=== PATIENT | female | born 1970 | race Hispanic/Latino ===

== ENCOUNTER 2017-06-10 21:06 | Inpatient (IN) | payer SELFPAY, OTHER ==
[2017-06-10] MEDS ORDERED: Pantoprazole 40 MG VIAL ONE (21:39)
[2017-06-10 22:20] LABS: #Basophils 0.1 thou/uL (0.0-0.2); #Eosinphils 0.1 thou/uL (0.0-0.7); #Lymphocytes 3.7 thou/uL (1.20-3.40); #Monocytes 0.7 thou/uL (0.11-0.59); #Neutrophils 7.3 thou/uL (1.40-6.50); %Basophils 0.8 % (0.0-1.0); %Eosinophils 0.9 % (0.0-10.0); %Monocytes 5.8 % (0.0-10.0); %Neutrophils 61.5 % (42.0-75.0); Anisocytosis MODERATE=16-30 cells (100X) (0-5/hpf); Bite Cells SLIGHT = 2-5 cells (100X) (0-1/hpf); Elliptocytes SLIGHT = 2-5 cells (100X) (0-1/hpf); Hemoglobin 7.8 g/dL (12.0-16.0); Hypochromia SLIGHT = 6-15 cells (100X) (0-5/hpf); MDiff Complete? YES; Mean Corpuscular HGB CONC 29.8 g/dL (32.0-36.0); Mean Corpuscular Hemoglobin 19.2 pg (27.0-31.0); Mean Corpuscular Volume 64.4 fl (81.0-99.0); Mean Platelet Volume 8.7 fL (7.4-10.4); Microcytosis MODERATE=15-30 cells (100X) (0-5/hpf); Ovalocytes SLIGHT = 2-5 cells (100X) (0-1/hpf); PLT Morphology Comment Appears Increased; Platelet Count 497 thou/uL (130-400); RBC Distribution Width 16.7 % (11.5-14.5); Red Blood Cell (RBC) Count 4.07 mill/uL (4.20-5.40); Reflex for Review?? YES; Tear Drops SLIGHT = 2-5 cells (100X) (0-1/hpf); White Blood Cell (WBC) Count 11.9 thou/uL (4.8-10.8)
[2017-06-10] MEDS ORDERED: Fentanyl 100 MCG/2 ML VIAL ONE (23:40)
[2017-06-11] MEDS ORDERED: Morphine 5 MG/ML SYRINGE SLOW IVP PRN (00:12)
[2017-06-11] MEDS ORDERED: HYDROcodone/Acetaminophen 5/325 mg Tablet PO PRN (00:13)
[2017-06-11] MEDS ORDERED: Bisacodyl 5 MG TAB PO PRN (00:13)
[2017-06-11] MEDS ORDERED: Milk Of Magnesia 30 ML UDCUP PO PRN (00:13)
[2017-06-11] MEDS ORDERED: Calcium Carbonate 500 MG ChewTAB PO PRN (00:13)
[2017-06-11] MEDS ORDERED: Senokot 8.6 MG TAB PO PRN (00:13)
[2017-06-11 00:23] VITALS: BMI 31.8
[2017-06-11] MEDS: Sodium Chloride 0.9% 1,000 ML IV SCH ×3 (00:44→16:03)
[2017-06-11 04:56] LABS: #Eosinphils 0.2 thou/uL (0.0-0.7); #Lymphocytes 3.4 thou/uL (1.20-3.40); #Monocytes 0.7 thou/uL (0.11-0.59); #Neutrophils 6.4 thou/uL (1.40-6.50); %Basophils 0.3 % (0.0-1.0); %Eosinophils 1.5 % (0.0-10.0); %Monocytes 6.6 % (0.0-10.0); %Neutrophils 59.6 % (42.0-75.0); Mean Corpuscular HGB CONC 30.2 g/dL (32.0-36.0); Mean Corpuscular Hemoglobin 19.4 pg (27.0-31.0); Mean Corpuscular Volume 64.3 fl (81.0-99.0); Mean Platelet Volume 8.6 fL (7.4-10.4); Platelet Count 458 thou/uL (130-400); RBC Distribution Width 16.7 % (11.5-14.5); Red Blood Cell (RBC) Count 3.62 mill/uL (4.20-5.40); White Blood Cell (WBC) Count 10.8 thou/uL (4.8-10.8)
[2017-06-11 05:12] LABS: Anion Gap 11 mmol/L (10-20); BUN (Urea Nitrogen) 8 mg/dL (7.0-18.7); Calc. Creatinine Clearance 112 mL/min (70-130); Calcium 8.4 mg/dL (7.8-10.44); Carbon Dioxide 19 mmol/L (22-29); Chloride 110 mmol/L (98-107); Estimated GFR-MDRD 84; Glucose 137 mg/dL (70-105); Iron 14 ug/dL (50-170); Iron Binding Capacity, Total 396 mcg/dL (265-497); Potassium 3.5 mmol/L (3.5-5.1); Sodium 136 mmol/L (136-145)
[2017-06-11 05:42] LABS: Folate (Folic Acid) 11.7 ng/mL (7.0-31.4)
--- NOTE | 2017-06-11 06:14 | HP ---
PRIMARY CARE PHYSICIAN: Dr. Jocelin Mccray. PRESENTING COMPLAINT: "I was passing bright red blood." HISTORY OF PRESENT ILLNESS: A 46-year-old female with a past medical history of hemorrhoids who pres ented to the emergency room after she was noticed rectal bleeding for the past 3 days. She had blood y bowel movements anytime, she went to the bathroom and then started getting lightheadedness, felt th e room spinning around her and this was worse especially when standing from a seated position. She a lso reports 2 episodes where she had near syncopal events and had been feeling unwell for the past 2 days. On Sunday afternoon, she had a near syncopal episode again and decided to come to the hospital . There is no history of fevers, chills, but she reports some nausea and dyspnea on exertion. She r eports she has had rectal bleeding intermittently for the past year, but has never had it thoroughly investigated. She was told she had hemorrhoids, never had a colonoscopy. PAST MEDICAL HISTORY: Hyperlipidemia, hemorrhoids. PAST SURGICAL HISTORY: . FAMILY HISTORY: Reviewed and noncontributory. SOCIAL HISTORY: Does not drink alcohol, smoke cigarettes, or use illicit drugs. ALLERGIES: None. REVIEW OF SYSTEMS: Constitutional: Negative. HEENT: Negative. Cardiovascular: Negative. Respir atory: Positive for shortness of breath with dyspnea on exertion. Gastrointestinal: Per HPI. Musc uloskeletal: Negative. Skin: Negative. Neurologic: Lightheadedness. Heme/Lymphatic: Negative. Allergy/Immunology Negative. Psychiatric: Negative. PHYSICAL EXAMINATION: VITAL SIGNS: Reviewed and are stable. Non-tachycardic, normotensive. CONSTITUTIONAL: Not in acute distress. Lying comfortably in bed. HEENT: Normocephalic, atraumatic. Not pale, anicteric. PERRLA, EOMI. RESPIRATORY: Vesicular breath sounds bilaterally. No wheezes or rales. CARDIOVASCULAR: S1 and S2 only. No murmurs, rubs, or gallops. MUSCULOSKELETAL: No skeletal abnormalities. Moves all extremities spontaneously. ABDOMEN: Positive bowel sounds, nontender, nondistended, no organomegaly. SKIN: Warm, dry, well perfused. NEUROLOGIC: Alert and well oriented. No focal deficits. PSYCHIATRIC: Normal mood and affect. LABORATORY DATA: Hemoglobin 7.8, WBC 11.9, and platelets 497. IMAGING: None here, but she reports a CT scan that was done at [facility]. ASSESSMENT AND PLAN: 1. Rectal bleeding, most likely from hemorrhoids as the patient reports having a history of hemorrho ids, however, a more significant etiology needs to be investigated. We will obtain a GI consult. Deni intain patient on n.p.o. status. Trend hemoglobin every 6 to 8 hours. Typed and screened for 2 unit s of PRBCs and placed on IV fluids. We will transfuse if hemoglobin less than 7 or patient remains s ymptomatic. 2. Orthostatic hypotension. This was done at the emergency room and this likely from blood loss fro m rectal bleed. We will give bolus of normal saline and hydrate parenterally. 3. Anemia, likely due to blood loss anemia, we will obtain iron/anemia panel. 4. Hyperlipidemia. We will resume home medications. Note, the patient reports a CT abdomen done at the [facility]. Primary team is to follow up with results of the scan.
--- NOTE | 2017-06-11 08:17 | PDOC.PN ---
- Subjective Encounter Start Date: 06/11/17 Encounter Start Time: 08:15 Subjective: BRB per rectum, over past year - Objective Resuscitation Status: Resuscitation Status FULL:Full Resuscitation MAR Reviewed: Yes Vital Signs & Weight: Vital Signs (12 hours) Temp Pulse Resp BP BP BP BP 06/11/17 07:21 98.5 F 66 16 88/52 L 06/11/17 03:55 98.4 F 74 18 106/59 L 06/11/17 00:35 111/68 113/66 112/59 L 06/11/17 00:11 98.3 F 68 16 113/61 Pulse Ox 06/11/17 07:21 100 06/11/17 03:55 92 L 06/11/17 00:35 06/11/17 00:11 97 Weight Weight 162 lb 12.8 oz I&O: 06/10/17 06/11/17 06/12/17 06:59 06:59 06:59 Intake Total 790 Balance 790 Result Diagrams: 06/11/17 10:22 06/11/17 04:11 Phys Exam - Physical Examination Neck: no JVD Respiratory: clear to auscultation bilateral Cardiovascular: RRR, no significant murmur Gastrointestinal: soft, non-tender, positive bowel sounds Musculoskeletal: no edema Dx/Plan (1) Rectal hemorrhage Code(s): K62.5 - HEMORRHAGE OF ANUS AND RECTUM Status: Acute (2) DOLORES (iron deficiency anemia) Code(s): D50.9 - IRON DEFICIENCY ANEMIA, UNSPECIFIED Status: Acute Qualifiers: Iron deficiency anemia type: unspecified iron deficiency Qualified Code(s) : D50.9 - Iron deficiency anemia, unspecified (3) Dizziness and giddiness Code(s): R42 - DIZZINESS AND GIDDINESS Status: Acute (4) Dyslipidemia Code(s): E78.5 - HYPERLIPIDEMIA, UNSPECIFIED Status: Chronic - Plan iv fluids, serial H&H, transfuse for Hg < 7 -: GI consult pending -: 10am Hg 7.4rpt at 1600, no transfusion now * .
[2017-06-11] MEDS: Docusate 100 MG CAP PO SCH ×2 (08:39→20:52)
[2017-06-11] MEDS: Famotidine 20 MG TAB PO SCH ×2 (08:39→20:52)
[2017-06-11] MEDS ORDERED: GoLYTELY 4,000 ml Bottle PO SCH (10:15)
[2017-06-11 10:43] LABS: Hemoglobin 7.4 g/dL (12.0-16.0); Platelet Count 468 thou/uL (130-400)
--- NOTE | 2017-06-11 11:11 | CON ---
DATE OF CONSULTATION: 06/11/2017 REASON FOR CONSULTATION: Chronic iron deficiency anemia and rectal bleeding. HISTORY OF PRESENT ILLNESS: Ms. Ambriz is a 46-year-old female who came to the emergency room yest erday at 8 a.m. with complaints of rectal bleeding. She came in because she was feeling weak and lig htheaded most of the day. She reports that she has had bleeding on and off for about a year, which i s typically bright red. A few weeks ago she went to her clinic in [place] and she was told everyth ing was "okay". For 2-3 days before admission, she states she is having about 2-3 bowel movements a day with bright red blood. She felt there was a lot, but does not recall if there were clots. She h as had no further bleeding today. Apparently the precipitating event for coming to the hospital was that she had a bowel movement with some more blood and she became lightheaded on the toilet at that t robbin. She has no fever or chills. She has complained of some left lower quadrant pain in the emergen cy room and has had some mild nausea and dyspnea on exertion. Denies any chest pain. PAST MEDICAL HISTORY: Hyperlipidemia, hemorrhoids. PAST SURGICAL HISTORY: Tubal ligation. FAMILY HISTORY: The patient's mother had uterine cancer. She had a sister with breast cancer and sh e had a maternal aunt with breast cancer and she had a maternal uncle with throat cancer. SOCIAL HISTORY: The patient does not smoke, drink or use alcohol. She is here with a friend. ALLERGIES: None known. MEDICATIONS AT HOME: She is on statin. REVIEW OF SYSTEMS: Negative for dysphagia, odynophagia, melena or hematemesis. PRESENT MEDICATIONS HERE: Tylenol, Jesse, Dulcolax, Tums, Colace, Pepcid, morphine p.r.n., normal sa line at 100. PHYSICAL EXAMINATION: VITAL SIGNS: Temperature is 98.5, respirations 16, pulse 66, blood pressure 188/52. LABORATORY STUDIES: Hemoglobin was 7, it was 7.8 yesterday, MCV is 64, platelet count 458. White co unt is 10.8. Chemistry: Sodium is 136, potassium 3.5, BUN and creatinine are 8 and 0.75. Iron was 14, glucose and calcium were normal. B12 was 390. HEENT: Within normal limits. Oropharynx without lesions. NECK: Supple, without adenopathy. LUNGS: Clear. HEART: Regular rate and rhythm without clicks or murmurs. ABDOMEN: Soft, nontender, there is no rebound, no guarding. I feel no masses in the lower abdomen. RECTAL: Reveals no masses or lesions. ASSESSMENT: 1. This is a 46-year-old female who has had what seems like chronic rectal outlet bleeding. It does not seem that she has really had any significant acute bleeding. She is hemodynamically stable pres ently. Differential diagnoses include malignancy and hemorrhoids. She has no overt exam findings on rectal exam. She denies any heavy menses. She has lost about 16 pounds she states. 2. There is some type of admission note of H. pylori status being positive, but the patient is not a lambert of this. RECOMMENDATIONS: 1. Serial H&H's 2. Agree with H2 jyoti. 3. Clear liquid diet. 4. Bowel prep for EGD and colonoscopy tomorrow.
[2017-06-11] MEDS: Acetaminophen 325 MG TAB PO PRN ×2 (11:41→17:31)
[2017-06-11] MEDS ORDERED: Sodium Chloride 0.9% 1,000 ML IV SCH (15:30)
[2017-06-12] MEDS: Sodium Chloride 0.9% 1,000 ML IV SCH ×2 (03:00→15:53)
[2017-06-12 05:11] LABS: #Basophils 0.1 thou/uL (0.0-0.2); #Eosinphils 0.2 thou/uL (0.0-0.7); #Monocytes 0.6 thou/uL (0.11-0.59); #Neutrophils 4.2 thou/uL (1.40-6.50); %Basophils 0.8 % (0.0-1.0); %Eosinophils 2.2 % (0.0-10.0); %Lymphocytes 37.3 % (21.0-51.0); %Monocytes 7.7 % (0.0-10.0); %Neutrophils 51.9 % (42.0-75.0); Hemoglobin 6.8 g/dL (12.0-16.0); Mean Corpuscular HGB CONC 28.5 g/dL (32.0-36.0); Mean Corpuscular Hemoglobin 18.5 pg (27.0-31.0); Mean Corpuscular Volume 64.9 fl (81.0-99.0); Mean Platelet Volume 8.2 fL (7.4-10.4); Platelet Count 393 thou/uL (130-400); RBC Distribution Width 16.9 % (11.5-14.5); Red Blood Cell (RBC) Count 3.68 mill/uL (4.20-5.40); White Blood Cell (WBC) Count 8.1 thou/uL (4.8-10.8)
[2017-06-12] MEDS: Docusate 100 MG CAP PO SCH ×2 (08:21→20:30)
[2017-06-12] MEDS: Famotidine 20 MG TAB PO SCH ×2 (08:21→20:30)
[2017-06-12] MEDS ORDERED: FLU VACC QS2017-18 36 mo. & older 0.5 ML SYRINGE IM ONE (09:00)
[2017-06-12] MEDS ORDERED: Promethazine HCl 25 MG/ML VIAL IM PRN (10:23)
[2017-06-12] MEDS ORDERED: Promethazine HCl 25 MG/ML VIAL SLOW IVP PRN (10:23)
[2017-06-12] MEDS ORDERED: Ondansetron HCl/PF 4 MG/2 ML Vial IVP PRN (10:23)
--- NOTE | 2017-06-12 10:40 | OP ---
DATE OF PROCEDURE: 06/12/2017 GI ENDOSCOPY NOTE SURGEON: Nico Archuleta M.D. HEADING UP MACHINE OPERATOR SURGEON: None. PROCEDURES: 1. Esophagogastroduodenoscopy, diagnostic. 2. Colonoscopy, diagnostic. INDICATION: Gastrointestinal bleeding, suspect lower gastrointestinal source. PREOPERATIVE DIAGNOSES: 1. Iron deficiency anemia. 2. Possible prior history of helicobacter pylori infection. MEDICATIONS: See anesthesia record. FINDINGS: After discussion of the risks, benefits and alternatives of the procedure, informed consen t was obtained and witnessed. Pre-endoscopic cardiopulmonary examination was satisfactory. Timeout was performed before sedation was achieved. Sedation was achieved with anesthesia assistance in the endoscopy unit. A Pentax adult upper endoscope was placed into the oropharynx and passed through the cricopharyngeus under direct visualization. The esophageal mucosa appeared normal throughout with a normal-appearing Z-line. The endoscope was then advanced into the stomach. Forward and retroflexed views of the entire gastric mucosa were obtained. The gastric mucosa appeared normal throughout. I n the gastric antrum, there was a small umbilicated nodule with an appearance consistent with a pancr eatic rest. There were no stigmata of bleeding. There was no erosion in the area. This is not felt to be clinically significant. The endoscope was passed through the pylorus and into the first and s econd portions of the duodenum which appeared normal. The upper endoscope was then completely withdr awn and the patient was repositioned. Digital rectal exam was performed. This demonstrated multiple external hemorrhoidal skin tags. A Pe ntax adult colonoscope was inserted into the anus and passed forward to the cecum in the usual fashio n. The cecal base was identified by the appendiceal orifice as well as the ileocecal valve. The ter ema ileum was intubated and the ileal mucosa appeared normal. The colonoscope was then slowly with drawn in a gradual and circumferential manner with careful examination of the entire colonic mucosa. The quality of the prep was good. There was no evidence of any old blood or active bleeding through out the colon. There was no evidence of any bleeding lesions throughout the colon. There were no po lyps visualized. No diverticulosis. Retroflexion in the rectum demonstrated multiple large internal hemorrhoids which are thin walled. This is thought to represent the source of her chronic bleeding and is the likely explanation for her anemia. The colonoscope was then completely withdrawn and the patient allowed to recover. The patient tolerated the procedure well. There were no immediate post- procedure complications. IMPRESSION: 1. Small pancreatic rest in the gastric antrum, not clinically significant, not a source of bleeding . 2. Otherwise, normal esophagogastroduodenoscopy. 3. Large internal hemorrhoids. These are thought to be the cause of her chronic bleeding and likely the cause of her anemia. 4. External hemorrhoidal skin tags. 5. Otherwise, normal colonoscopy to the terminal ileum. RECOMMENDATIONS: 1. Stool softener. 2. We will go ahead and obtain surgical consultation for the hemorrhoids. 3. Repeat colonoscopy in 10 years for screening purposes.
--- NOTE | 2017-06-12 11:37 | PDOC.PN ---
- Subjective Encounter Start Date: 06/12/17 Encounter Start Time: 11:34 Subjective: weak, scant rectal bleeding - Objective MAR Reviewed: Yes Vital Signs & Weight: Vital Signs (12 hours) Temp Pulse Resp BP BP BP Pulse Ox 06/12/17 11:05 97.9 F 67 18 111/75 100 06/12/17 08:15 98.0 F 79 14 113/73 99 06/12/17 08:00 98.0 F 79 14 06/12/17 06:13 107/64 108/56 L 06/12/17 06:12 98.4 F 66 16 105/71 98 06/12/17 00:00 98.1 F 72 20 103/65 93 L Weight Admit Weight 162 lb 12.8 oz Weight 162 lb 12.8 oz Result Diagrams: 06/12/17 04:53 06/11/17 04:11 Phys Exam - Physical Examination Neck: no JVD Respiratory: clear to auscultation bilateral Cardiovascular: RRR, no significant murmur Gastrointestinal: soft, non-tender, positive bowel sounds Musculoskeletal: no edema Dx/Plan (1) Rectal hemorrhage Code(s): K62.5 - HEMORRHAGE OF ANUS AND RECTUM Status: Acute (2) DOLORES (iron deficiency anemia) Code(s): D50.9 - IRON DEFICIENCY ANEMIA, UNSPECIFIED Status: Acute Qualifiers: Iron deficiency anemia type: unspecified iron deficiency Qualified Code(s) : D50.9 - Iron deficiency anemia, unspecified (3) Dizziness and giddiness Code(s): R42 - DIZZINESS AND GIDDINESS Status: Acute (4) Dyslipidemia Code(s): E78.5 - HYPERLIPIDEMIA, UNSPECIFIED Status: Chronic (5) Bleeding hemorrhoids Code(s): K64.9 - UNSPECIFIED HEMORRHOIDS Status: Acute - Plan endoscopy reveals only bleeding hemorrhoids -: Hg < 7, transfuse with 1 unit PRBC -: Gen Surg consult for hemorrhoids * .
[2017-06-12] MEDS ORDERED: Piperacillin/Tazobactam 3.375 GM, Admixture Fee 1 EACH in Sodium Chloride 0.9% 100 ML IVPB SCH ×2 (13:00→13:30)
[2017-06-12] MEDS ORDERED: PROPOFOL 200 MG/20 ML VIAL ONE (15:42)
[2017-06-12] MEDS ORDERED: Lidocaine 1% PF 5 ML VIAL ONE (15:42)
[2017-06-12] MEDS ORDERED: traMADol HCl 50 MG TAB PO PRN ×2 (16:22)
[2017-06-12] MEDS ORDERED: Ibuprofen 600 MG TAB PO PRN (16:23)
[2017-06-12] MEDS: Ferrous Sulfate 325 MG TAB PO SCH (17:59)
[2017-06-12] MEDS: Acetaminophen 500 MG TAB PO PRN (20:30)
--- NOTE | 2017-06-12 20:38 | HP ---
HISTORY OF PRESENT ILLNESS: Marcy Ambriz is a 46-year-old Macanese speaking only female 4, para 4, status post recent tubal ligation, has had a long history of rectal bleeding. She remains he modynamically stable with a hemoglobin of 7.8 on admission 06/10 and 6.8 today on 06/12/2017. She is ambulatory without orthostatic symptoms. Patient has been seen, evaluated by Dr. Robb. Dr. Archuleta performed colonoscopy, which was normal except for large internal hemorrhoids. Patient states that s he has bright red blood per rectum on her toilet tissue and her pad. She has to reduce prolapsed hem orrhoids at times. Dr. Archuleta appreciated large internal hemorrhoids and felt that her bleeding was fr om that. Patient does not have any financial resources, she is Macanese speaking only. She is still on liquids after colonoscopy. Plan is for staple hemorrhoidectomy and excisional internal hemorrhoid s as needed for prolapsed bleeding and internal hemorrhoids. She understands the risks of infection, bleeding, reoperation, chronic pain, etc. and consents. Questions answered. ALLERGIES: None. TOBACCO: None. ALCOHOL: Rarely. MEDICATIONS: Lovastatin 40 mg p.m. PAST SURGICAL AND MEDICAL HISTORY: Noncontributory except for tubal ligation, 4, para 4. Sukhi jon is a full-time mother, lives at home. PHYSICAL EXAMINATION: VITAL SIGNS: 5-feet tall, 162 pounds, 31 BMI, 98.5, 67, 110/70. HEAD, EYES, EARS, NOSE, AND THROAT: Unremarkable. LUNGS: Clear to auscultation. CARDIAC: Regular rate and rhythm without murmur or gallop. ABDOMEN: Soft, obese, nontender. EXTREMITIES: Unremarkable. Perianal area normal. Rectal exam not performed due to recent colonosco py. ASSESSMENT AND PLAN: Bleeding hemorrhoids with significant anemia. Patient has refused 1 unit of bl ood ordered and I agreed that she probably does not need it, she has chronic anemia. She is asymptom atic, ambulatory without orthostatic symptoms. Would recommend continued clear liquids today, n.p.o. after midnight, and stapled hemorrhoidectomy in the morning with excision of hemorrhoid complex as i ndicated. Risk of infection, bleeding, and reoperation explained. This operation was usually an out patient surgery. Patient can be discharged home postoperatively or due to her severe anemia observed overnight, discharged the next day which would be appropriate.
[2017-06-13 05:13] LABS: #Eosinphils 0.2 thou/uL (0.0-0.7); #Lymphocytes 3.2 thou/uL (1.20-3.40); #Monocytes 0.6 thou/uL (0.11-0.59); #Neutrophils 5.1 thou/uL (1.40-6.50); %Basophils 0.5 % (0.0-1.0); %Eosinophils 2.1 % (0.0-10.0); %Lymphocytes 34.9 % (21.0-51.0); %Monocytes 6.6 % (0.0-10.0); %Neutrophils 55.9 % (42.0-75.0); Hemoglobin 7.5 g/dL (12.0-16.0); Mean Corpuscular HGB CONC 30.1 g/dL (32.0-36.0); Mean Corpuscular Hemoglobin 19.4 pg (27.0-31.0); Mean Corpuscular Volume 64.4 fl (81.0-99.0); Mean Platelet Volume 8.6 fL (7.4-10.4); Platelet Count 494 thou/uL (130-400); RBC Distribution Width 17.1 % (11.5-14.5); Red Blood Cell (RBC) Count 3.85 mill/uL (4.20-5.40); White Blood Cell (WBC) Count 9.1 thou/uL (4.8-10.8)
[2017-06-13] MEDS: Polyethylene Glycol 3350 17 GM Packet PO SCH (08:09)
[2017-06-13] MEDS: Docusate 100 MG CAP PO SCH (08:09)
[2017-06-13] MEDS: Famotidine 20 MG TAB PO SCH ×2 (08:09→21:12)
[2017-06-13] MEDS: Multivitamins CHEW w/Iron Tablet PO SCH (08:09)
[2017-06-13] MEDS: Ferrous Sulfate 325 MG TAB PO SCH ×2 (08:09→18:01)
--- NOTE | 2017-06-13 09:31 | PDOC.PN ---
- Subjective Encounter Start Date: 06/13/17 Encounter Start Time: 09:29 Subjective: alert, npo, surgery today - Objective MAR Reviewed: Yes Vital Signs & Weight: Vital Signs (12 hours) Temp Pulse Resp BP BP BP Pulse Ox 06/13/17 07:00 98.7 F 61 17 102/70 100/68 106/69 98 06/13/17 04:49 98.1 F 71 18 100/65 96 Weight Admit Weight 162 lb 12.8 oz Weight 162 lb 12.8 oz I&O: 06/12/17 06/13/17 06/14/17 06:59 06:59 06:59 Intake Total 240 Balance 240 Result Diagrams: 06/13/17 04:22 06/11/17 04:11 Phys Exam - Physical Examination Neck: no JVD Respiratory: clear to auscultation bilateral Cardiovascular: RRR, no significant murmur Gastrointestinal: soft, non-tender, positive bowel sounds Musculoskeletal: no edema Dx/Plan (1) Rectal hemorrhage Code(s): K62.5 - HEMORRHAGE OF ANUS AND RECTUM Status: Acute (2) DOLORES (iron deficiency anemia) Code(s): D50.9 - IRON DEFICIENCY ANEMIA, UNSPECIFIED Status: Acute Qualifiers: Iron deficiency anemia type: unspecified iron deficiency Qualified Code(s) : D50.9 - Iron deficiency anemia, unspecified (3) Dizziness and giddiness Code(s): R42 - DIZZINESS AND GIDDINESS Status: Acute (4) Dyslipidemia Code(s): E78.5 - HYPERLIPIDEMIA, UNSPECIFIED Status: Chronic (5) Bleeding hemorrhoids Code(s): K64.9 - UNSPECIFIED HEMORRHOIDS Status: Acute - Plan surgery today, then DC on 6 mos iron tx * .
[2017-06-13] MEDS: Acetaminophen 500 MG TAB PO PRN (11:19)
[2017-06-13] MEDS ORDERED: Piperacillin/Tazobactam 3.375 GM, Admixture Fee 1 EACH in Sodium Chloride 0.9% 100 ML IVPB SCH (13:45)
[2017-06-13] MEDS ORDERED: Lidocaine 2% Jelly 5 ML TUBE ONE (15:48)
[2017-06-13] MEDS ORDERED: Bupivacaine HCl 0.5%/Epinephrine 1:200,000/PF 30 ml Vial ONE (15:48)
[2017-06-13] MEDS ORDERED: Dexamethasone 20 MG/5 ML VIAL ONE (16:25)
[2017-06-13] MEDS ORDERED: Glycopyrrolate 0.2 MG/ML 5 ML SYRINGE ONE (16:25)
[2017-06-13] MEDS ORDERED: Ondansetron PF 4 MG/2 ML Vial ONE (16:25)
[2017-06-13] MEDS ORDERED: PROPOFOL 200 MG/20 ML VIAL ONE (16:25)
[2017-06-13] MEDS ORDERED: Lidocaine 1% PF 5 ML VIAL ONE (16:25)
[2017-06-13] MEDS ORDERED: Fentanyl 250 MCG/5 ML VIAL ONE (17:59)
[2017-06-13] MEDS ORDERED: SUGAMMADEX SODIUM 200 MG/2 ML VIAL ONE (19:09)
[2017-06-13] MEDS ORDERED: Promethazine HCl 25 MG/ML VIAL SLOW IVP PRN (19:19)
[2017-06-13] MEDS ORDERED: Ondansetron HCl/PF 4 MG/2 ML Vial IVP PRN (19:19)
[2017-06-13] MEDS ORDERED: Meperidine HCl/PF 25 MG/ML VIAL SLOW IVP PRN (19:19)
[2017-06-13] MEDS ORDERED: Promethazine HCl 25 MG/ML VIAL IM PRN (19:19)
[2017-06-13] MEDS ORDERED: Fentanyl 100 MCG/2 ML VIAL ONE (19:34)
[2017-06-13] MEDS ORDERED: Enoxaparin Sodium 40 MG/0.4 ML SYRINGE SC SCH (21:00)
[2017-06-13] MEDS: Citrucel 500 MG TAB PO SCH (21:12)
[2017-06-14 04:55] LABS: #Monocytes 0.2 thou/uL (0.11-0.59); #Neutrophils 12.4 thou/uL (1.40-6.50); %Eosinophils 0.1 % (0.0-10.0); %Lymphocytes 7.3 % (21.0-51.0); %Monocytes 1.3 % (0.0-10.0); %Neutrophils 91.3 % (42.0-75.0); Hemoglobin 7.3 g/dL (12.0-16.0); Mean Corpuscular HGB CONC 30.4 g/dL (32.0-36.0); Mean Corpuscular Hemoglobin 19.1 pg (27.0-31.0); Mean Corpuscular Volume 62.9 fl (81.0-99.0); Mean Platelet Volume 7.9 fL (7.4-10.4); Platelet Count 498 thou/uL (130-400); RBC Distribution Width 16.9 % (11.5-14.5); Red Blood Cell (RBC) Count 3.83 mill/uL (4.20-5.40); White Blood Cell (WBC) Count 13.6 thou/uL (4.8-10.8)
--- NOTE | 2017-06-14 06:17 | OP ---
DATE OF PROCEDURE: 06/13/2017 PREOPERATIVE DIAGNOSIS: Severe anemia from bleeding hemorrhoids (status post EGD and colonoscopy yes terday without other significant source and hemoglobin of 7) and prolapsing hemorrhoids with bleeding . PROCEDURE PERFORMED: PPH stapled hemorrhoidectomy with excision of two hemorrhoidal complexes. SURGEON: Dr. Castillo. ANESTHESIA: General. Local 0.5% Marcaine, 30 mL, mixed with 1% Xylocaine with epinephrine 20 mL, 10 mL mixture used. DESCRIPTION OF PROCEDURE: Patient was taken to the operating room where under general anesthesia in the prone position, proper padding and positioning. The perianal buttocks area prepared with Betadin e, draped in routine fashion. An anal canal or rectum gently dilated with speculum and lubricant. T he obturator working port of the PPH stapled hemorrhoidectomy set induced into the lower rectum and f our quadrant sutures of 2-0 silk held the working port in place. The obturator removed. The suture placement device placed and at the very apex, a pursestring suture of 2-0 Prolene was placed circumfe rentially and then the PPH stapling device inserted after the suture placement device removed. The s utures brought out through the holes and the stapling device and air knots tied, tightened around the post and it was well above the dentate line. As the safety was released and stapler approximated wi thin the torque fire range and stapler fired, loosened and complete donuts removed and submitted to P athology. Good hemostasis noted in the staple line. There are two large hemorrhoidal complexes pers isting and these were excised individually using the LigaSure device and an apical sutures of 2-0 chr omic. Once this was completed, this specimen was also submitted to Pathology. Good hemostasis obtai kathi. Gelfoam applied in the lower rectum. Patient tolerated the procedure well.
[2017-06-14 07:21] VITALS: BP 91/60; TEMP 98.3
[2017-06-14] MEDS: Polyethylene Glycol 3350 17 GM Packet PO SCH (09:35)
[2017-06-14] MEDS: Famotidine 20 MG TAB PO SCH (09:35)
[2017-06-14] MEDS: Ferrous Sulfate 325 MG TAB PO SCH (09:35)
[2017-06-14] MEDS: Citrucel 500 MG TAB PO SCH (09:36)
[2017-06-14] MEDS: Multivitamins CHEW w/Iron Tablet PO SCH (09:36)
--- NOTE | 2017-06-14 12:18 | PRG ---
DATE OF SERVICE: 06/14/2017 Ms. Ambriz is postop day #1 from a hemorrhoidectomy. This was done secondary to acute and chronic lower GI bleeding with symptomatic anemia on admission. Presently she is without complaints. PHYSICAL EXAMINATION: VITAL SIGNS: Temperature is 98, pulse 81, blood pressure is 95/58, 91/60. LUNGS: Clear. ABDOMEN: Soft, nontender. LABORATORY STUDIES: White count 13, hemoglobin 7.3, platelet count 498. ASSESSMENT: 1. Status post hemorrhoidectomy. 2. Symptomatic hemorrhoids with GI bleeding which was symptomatic. RECOMMENDATIONS: Local care with sitz baths at discharge. Stool softeners with fiber and Colace as necessary. Follow up with General Surgery as directed. She will see us back as needed from a GI sta ndpoint, her endoscopies were otherwise negative.
--- NOTE | 2017-06-14 15:08 | PDOC.PN ---
- Subjective Encounter Start Date: 06/14/17 Encounter Start Time: 15:05 Ms. Ambriz was seen today in follow-up. She says she is having some rectal pain, otherwise ok. - Objective MAR Reviewed: Yes Vital Signs & Weight: Vital Signs (12 hours) Temp Pulse Resp BP Pulse Ox 06/14/17 08:00 98.3 F 81 18 06/14/17 07:18 98.3 F 81 18 91/60 94 L 06/14/17 04:00 98.1 F 88 20 95/58 L 100 Weight Admit Weight 162 lb 12.8 oz Weight 162 lb 12.8 oz I&O: 06/13/17 06/14/17 06/15/17 06:59 06:59 06:59 Intake Total 240 Balance 240 Result Diagrams: 06/14/17 04:35 06/11/17 04:11 Phys Exam - Physical Examination HEENT: PERRLA Respiratory: no wheezing, no rales, no rhonchi, clear to auscultation bilateral Cardiovascular: RRR, no significant murmur Gastrointestinal: soft, non-tender, positive bowel sounds Musculoskeletal: no edema Dx/Plan (1) Bleeding hemorrhoids Code(s): K64.9 - UNSPECIFIED HEMORRHOIDS Status: Acute (2) DOLORES (iron deficiency anemia) Code(s): D50.9 - IRON DEFICIENCY ANEMIA, UNSPECIFIED Status: Acute Qualifiers: Iron deficiency anemia type: unspecified iron deficiency Qualified Code(s) : D50.9 - Iron deficiency anemia, unspecified (3) Rectal hemorrhage Code(s): K62.5 - HEMORRHAGE OF ANUS AND RECTUM Status: Acute - Plan * Rectal Hemorrhoids with bleeding- she is post hemorrhoidectomy and is clinically stable * Acute blood loss anemia- continue iron therapy * She is stable for discharge home.
[2017-06-14] MEDS: Acetaminophen 500 MG TAB PO PRN (16:11)
--- NOTE | 2017-06-15 00:27 | DIS ---
DATE OF ADMISSION: 06/11/2017 DATE OF DISCHARGE: 06/14/2017 DISCHARGE DISPOSITION: Home. PRIMARY DISCHARGE DIAGNOSES: 1. Rectal hemorrhoids with bleeding. 2. Acute blood loss anemia. DISCHARGE MEDICATIONS: Include sitz bath p.r.n., Ultram 50 mg q.6 hours as needed for pain, lovastat in 40 mg daily, ibuprofen 600 mg q.6 hours as needed, iron sulfate 325 mg t.i.d., Citrucel 500 mg twi ce a day and Tylenol Extra Strength p.r.n. PROCEDURES DONE DURING ADMISSION: The patient had an EGD as well as colonoscopy. FINDINGS: There was a small pancreatic rest in the gastric antrum, but not likely the source of blee ding, otherwise normal. In the colonoscopy, there was large internal hemorrhoids, which was thought to be the cause of chronic bleeding, likely her anemia. There was some external hemorrhoidal skin t ags and otherwise normal colonoscopy to the terminal ileum. The patient also had a PPH stapled hemor rhoidectomy with excision of two hemorrhoidal complexes. CODE STATUS: Full code. ALLERGIES: No known drug allergies. HOSPITAL COURSE: Ms. Ambriz is a pleasant 46-year-old female who was admitted to the hospital afte r suffering a significant rectal bleeding. She was also found to be anemic with a hemoglobin as low as 6.8. She was seen by Gastroenterology underwent EGD and colonoscopy. The large internal hemorrho ids were discovered. General Surgery was consulted and she ultimately underwent surgical hemorrhoide ctomy. She had an uneventful postoperative course and was subsequently able to be discharged home. She is recommended to take stool softeners and fiber as needed and medication was given for pain. Sukhi jon has also been placed on iron to help improve her iron stores and rebuild her hemoglobin and hematoc rit. The patient had refused transfusion during the hospital stay. She is to follow up with her [facility] physician in approximately 1-2 weeks.
== END 2017-06-14 16:15 | disposition home or self-care (01) | DRG 348 ==
LOC: ERS 21:06 → 2SW 06-11 00:08 → OBSVTOIN 06-11 08:50 → T4-A 06-11 16:15
PROVIDERS: ADMIT Internal Medicine; ATTEND Internal Medicine
PROC: 0DJ08ZZ Inspection of Upper Intestinal Tract, Via Natural or Artificial Opening Endoscopic (ICD-10-PCS; 2017-06-12)
PROC: 0DJD8ZZ Inspection of Lower Intestinal Tract, Via Natural or Artificial Opening Endoscopic (ICD-10-PCS; 2017-06-12)
PROC: 06BY0ZC Excision of Hemorrhoidal Plexus, Open Approach (ICD-10-PCS; principal; 2017-06-13)
DX: K64.8 Other hemorrhoids (principal); K62.5 Hemorrhage of anus and rectum; D62 Acute posthemorrhagic anemia; D50.9 Iron deficiency anemia, unspecified; E78.5 Hyperlipidemia, unspecified; F17.210 Nicotine dependence, cigarettes, uncomplicated; I95.1 Orthostatic hypotension; R42 Dizziness and giddiness; K64.4 Residual hemorrhoidal skin tags; K27.9 Peptic ulcer, site unspecified, unspecified as acute or chronic, without hemorrhage or perforation
CPT/HCPCS: 36415; 80048; 82607; 82728; 82746; 83540; 83550; 85025; 85060; 86850; 86900; 86901; 88304; 96361; 96374; 96375; C9113; J0670; J1100; J1650; J2001; J2270; J2405; J2543; J2704; J3010; J7050

== ENCOUNTER 2024-10-15 05:56 | Observation (INO) | payer SELFPAY ==
[2024-10-15 06:52] VITALS: BMI 29.2
[2024-10-15] MEDS ORDERED: Melatonin 3 MG TAB PO PRN (07:25)
[2024-10-15] MEDS ORDERED: hydrALAZINE 20 MG/ML VIAL SLOW IVP PRN (07:25)
[2024-10-15] MEDS ORDERED: Senokot S 8.6-50 MG TAB PO PRN (07:25)
[2024-10-15] MEDS ORDERED: Dextrose 50% Abboject 50 ML SYRINGE SLOW IVP PRN (08:11)
[2024-10-15] MEDS ORDERED: Glucagon 1 MG/ML KIT IM PRN (08:11)
[2024-10-15] MEDS: Aspirin 81 mg Enteric Coated Tablet PO SCH (09:55)
[2024-10-15] MEDS: Enoxaparin 40 MG (0.4 mL) SYRINGE SC SCH (09:58)
[2024-10-15] MEDS: Famotidine 20 MG TAB PO SCH ×2 (09:58→21:59)
[2024-10-15 09:59] LABS: Anion Gap 13 mmol/L (10-20); BUN (Urea Nitrogen) 9 mg/dL (9.8-20.1); Calc. Creatinine Clearance 117 mL/min (70-130); Calcium 9.1 mg/dL (7.8-10.44); Carbon Dioxide 23 mmol/L (22-29); Cardiac Risk 7.3 (Less than 4.5); Chloride 105 mmol/L (98-107); Cholesterol 338 mg/dl (< 200 Desired); Glucose 203 mg/dL (70-105); HDL Cholesterol 46 mg/dL (>60 Neg Risk); LDL Cholesterol, Calculated 223 mg/dL; Potassium 3.8 mmol/L (3.5-5.1); Sodium 137 mmol/L (136-145); Triglycerides 344 mg/dL (Less than 150)
[2024-10-15 10:01] LABS: Troponin I 0.064 ng/mL (< 0.028)
[2024-10-15 13:25] LABS: Troponin I Less than 0.010 ng/mL (< 0.028)
[2024-10-15] MEDS: metFORMIN 500 MG TAB PO SCH (21:59)
[2024-10-16 04:02] LABS: #Basophils 0.04 10x3/uL (0.0-0.2); #Eosinophils 0.15 10x3/uL (0.0-0.7); #Monocytes 0.35 10x3/uL (0.11-0.59); #Neutrophils 3.63 10x3/uL (1.40-6.50); %Basophils 0.5 % (0.0-1.0); %Eosinophils 2.0 % (0.0-10.0); %Lymphocytes 44.6 % (21.0-51.0); %Monocytes 4.6 % (0.0-10.0); %Neutrophils 47.9 % (42.0-75.0); Hematocrit 39.4 % (36.0-47.0); Hemoglobin 12.6 g/dL (12.0-16.0); Mean Corpuscular Hemoglobin 28.6 pg (27.0-31.0); Mean Corpuscular Volume 89.3 fL (78.0-98.0); Platelet Count 449 10x3/uL (130-400); Red Blood Cell (RBC) Count 4.41 mill/uL (4.20-5.40); White Blood Cell (WBC) Count 7.58 10x3/uL (4.8-10.8)
[2024-10-16] MEDS ORDERED: Non-Formulary Item 1 EACH (Atorvastatin Calcium [Atorvastatin Calcium] 80 MG Tablet) PO SCH (09:00)
[2024-10-16] MEDS: Acetaminophen 325 MG TAB PO PRN (09:38)
[2024-10-16 11:28] VITALS: BP 114/74; TEMP 98
== END 2024-10-16 15:38 | disposition home or self-care (01) ==
LOC: 2SE 05:58
PROVIDERS: ADMIT Internal Medicine; ATTEND Hospitalist
DX: G45.9 Transient cerebral ischemic attack, unspecified (principal); E11.9 Type 2 diabetes mellitus without complications; E78.5 Hyperlipidemia, unspecified; Z79.84 Long term (current) use of oral hypoglycemic drugs; Z79.4 Long term (current) use of insulin; Z79.899 Other long term (current) drug therapy
CPT/HCPCS: 36415; 36416; 70551; 80048; 80061; 83036; 84443; 84484; 85025; J1650; J1815; J7030